=== PATIENT | female | born 1960 | race Caucasian/White ===

== ENCOUNTER 2018-11-22 19:55 | Observation (INO) | payer MEDICARE, OTHER ==
[2018-11-22] MEDS ORDERED: Aspirin 81 MG Tab.Chew PO ONE (20:10)
[2018-11-22] MEDS ORDERED: Nitroglycerin 2% Oint 1 GM UD Packet TOP ONE (20:10)
--- NOTE | 2018-11-22 20:16 | EDM.PDOC ---
ED HPI GENERAL MEDICAL PROBLEM - General Chief Complaint: Chest Pain Stated Complaint: CHEST PAIN AND DIZZINESS Time Seen by Provider: 11/22/18 19:55 Source of Information: Reports: Patient, Family History Limitations: Reports: No Limitations - History of Present Illness INITIAL COMMENTS - FREE TEXT/NARRATIVE: in with c/o MS cp (pressure) to left arm, some sob and dizziness, with nausea, no vomiting, no unusual neck/back pain or stiffness, no fever or chills, sx started 2 hours prior to arrival Onset: Today, Sudden Duration: Hour(s): (2 hours) Location: Reports: Other (mid chest) Quality: Reports: Pressure Severity: Moderate Improves with: Reports: None Worsens with: Reports: Other (activity) Associated Symptoms: Reports: Chest Pain, Shortness of Breath. Denies: Cough, Fever/Chills, Headaches, Nausea/Vomiting, Weakness Treatments [employer]: Reports: Other (see below) (none) Upper Chest Pain Score (Numeric/FACES): 4 - Related Data Allergies Allergy/AdvReac Type Severity Reaction Status Date / Time erythromycin base Allergy Hives Verified 11/22/18 20:06 Penicillins Allergy Anaphylactic Verified 11/22/18 20:06 Shock Home Meds: Home Meds Albuterol [Ventolin HFA] 1 puff INH DAILY PRN 11/22/18 [History] Aspirin 325 mg PO BEDTIME 11/22/18 [History] Cetirizine [ZyrTEC] 10 mg PO DAILY 11/22/18 [History] Insulin Glarg,Human.Rec.Analog [Lantus] 54 units SQ DAILY 11/22/18 [History] Liraglutide [Victoza] 1.8 mg SQ DAILY 11/22/18 [History] Losartan [Cozaar] 50 mg PO DAILY 11/22/18 [History] Meloxicam 15 mg PO DAILY 11/22/18 [History] Omeprazole 40 mg PO BEDTIME 11/22/18 [History] Pioglitazone [Actos] 30 mg PO DAILY 11/22/18 [History] Pregabalin [Lyrica] 100 mg PO BID 11/22/18 [History] Simvastatin [Zocor] 40 mg PO DAILY 11/22/18 [History] metFORMIN HCl [Metformin HCl] 1,000 mg PO DAILY 11/22/18 [History] traMADol [Ultram] 50 mg PO BEDTIME 11/22/18 [History] Past Medical History Cardiovascular History: Reports: Hypertension, Other (See Below) (high cholesterol) Endocrine/Metabolic History: Reports: Diabetes, Type II Social & Family History - Family History Cardiac: Reports: CAD, Hypertension - Tobacco Use Smoking Status *Q: Current Every Day Smoker - Alcohol Use Alcohol Use History: No - Living Situation & Occupation Living situation: Reports: with Family ED ROS GENERAL - Review of Systems Review Of Systems: See Below Constitutional: Denies: Fever, Chills, Weakness HEENT: Reports: No Symptoms Respiratory: Reports: Shortness of Breath Cardiovascular: Reports: Chest Pain Endocrine: Reports: No Symptoms GI/Abdominal: Reports: Nausea. Denies: Abdominal Pain, Melena, Vomiting : Reports: No Symptoms Musculoskeletal: Reports: No Symptoms. Denies: Neck Pain, Back Pain Skin: Reports: No Symptoms Neurological: Reports: Dizziness. Denies: Headache Psychiatric: Reports: No Symptoms Hematologic/Lymphatic: Reports: No Symptoms Immunologic: Reports: No Symptoms ED EXAM, GENERAL - Physical Exam Exam: See Below Exam Limited By: No Limitations General Appearance: Alert, WD/WN, No Apparent Distress, Other (morbid obesity) Ears: Normal External Exam, Hearing Grossly Normal Nose: Normal Inspection Throat/Mouth: Normal Inspection, Normal Lips Head: Atraumatic, Normocephalic Neck: Normal Inspection, Supple, Non-Tender, Full Range of Motion Respiratory/Chest: No Respiratory Distress, Lungs Clear, Normal Breath Sounds Cardiovascular: Normal Peripheral Pulses, Regular Rate, Rhythm, No Edema, No Murmur Peripheral Pulses: 2+: Radial (L), Radial (R), Dorsalis Pedis (L), Dorsalis Pedis (R) GI/Abdominal: Soft, Non-Tender Back Exam: Normal Inspection, Full Range of Motion Extremities: Normal Inspection, Normal Range of Motion, Non-Tender, No Pedal Edema, Normal Capillary Refill, Other (no calf pain). No: Redness Neurological: Alert, Oriented, Normal Cognition, Normal Gait Psychiatric: Normal Affect, Normal Mood Skin Exam: Warm, Dry, Intact, Normal Color EKG INTERPRETATION EKG Date: 11/22/18 Time: 19:56 Rhythm: NSR [place]: Other (boarderline left axis) P-Wave: Present QRS: Normal ST-T: Normal EKG Interpretation Comments: SR without injury or ischemia Course - Vital Signs Text/Narrative:: the pt was evaluated in the ED, CBC and general chemistries along with Trop are essi neg, cxr neg, 12 Lead EKG does not show injury or ischemia, the pt does have type II DM, HTN and high cholesterol, concerning CP with SOB, and a family hx of CAD. HEART score of 5, the pt was given ASA and NTG paste in the ED with some relief of sx, will admit to observation to r/o DC. Last Recorded V/S: Last Vital Signs Temp 36.4 C 11/22/18 20:20 Pulse 76 11/22/18 20:38 Resp 17 11/22/18 20:38 BP 155/79 H 11/22/18 20:38 Pulse Ox 96 11/22/18 20:38 - Orders/Labs/Meds Orders: Active Orders 24 hr Category Date Time Status Chest 2V [CR] Stat Exams 11/22/18 20:09 Taken EKG 12 Lead [EK] Routine Ther 11/22/18 20:09 Ordered Labs: Laboratory Tests 11/22/18 11/22/18 Range/Units 20:08 20:08 WBC 8.5 (5.0-10.0) 10^3/uL RBC 5.73 H (4.00-5.50) 10^6/uL Hgb 14.9 (12.0-16.0) g/dL Hct 45.2 (37.0-47.0) % MCV 78.9 L (82.0-94.0) fL MCH 26.0 L (27.0-32.0) pg MCHC 33.0 (33.0-38.0) g/dL RDW Coeff of Yoshi 15.3 H (11.0-15.0) % Plt Count 279 (150-400) 10^3/uL Neut % (Auto) 64.3 (35-85) % Lymph % (Auto) 28.6 (10-55) % [place] % (Auto) 4.4 (0-16) % Eos % (Auto) 2.5 (0-5) % Baso % (Auto) 0.2 (0-3) % Neut # (Auto) 5.45 (1.80-7.00) 10^3/uL Lymph # (Auto) 2.42 (1.00-4.80) 10^3/uL [place] # (Auto) 0.37 (0.00-0.80) 10^3/uL Eos # (Auto) 0.21 (0.00-0.45) 10^3/uL Baso # (Auto) 0.02 10^3/uL Sodium 143 (136-145) mEq/L Potassium 3.9 (3.5-5.0) mEq/L Chloride 106 (98-106) mEq/L Carbon Dioxide 27 (21-32) mmol/L BUN 15 (7-18) mg/dL Creatinine 0.8 (0.6-1.0) mg/dL Est Cr Clr Drug Dosing TNP Estimated GFR (MDRD) > 60 (>=60) mL/min Glucose 133 H (75-99) mg/dL Calcium 9.3 (8.4-10.1) mg/dL Total Bilirubin 0.6 (0.0-1.0) mg/dL AST 14 L (15-37) U/L ALT 19 (12-78) U/L Alkaline Phosphatase 74 (46-116) U/L Troponin I < 0.017 (0.00-0.06) ng/mL Total Protein 7.2 (6.4-8.2) g/dL Albumin 3.3 L (3.4-5.0) g/dL Meds: Medications Discontinued Medications Generic Name Dose Route Start Last Admin Trade Name Freq PRN Reason Stop Dose Admin Aspirin 324 mg 11/22/18 20:10 11/22/18 20:27 Aspirin PO 11/22/18 20:11 324 mg ONETIME ONE Administration Nitroglycerin 1 gm 11/22/18 20:10 11/22/18 20:28 Nitro-Bid 2% TOP 11/22/18 20:11 1 gm ONETIME ONE Administration - Radiology Interpretation Free Text/Narrative:: cxr neg, pending radiology reading Departure - Departure Time of Disposition: 20:36 Disposition: Admitted As Inpatient 66 Condition: Good Clinical Impression: Shortness of breath Chest pain Qualifiers: Chest pain type: unspecified Qualified Code(s): R07.9 - Chest pain, unspecified - Problem List & Annotations (1) Chest pain SNOMED Code(s): 55919603 Code(s): R07.9 - CHEST PAIN, UNSPECIFIED Status: Acute Priority: High Qualifiers: Chest pain type: unspecified Qualified Code(s): R07.9 - Chest pain, unspecified (2) Shortness of breath SNOMED Code(s): 858461059 Code(s): R06.02 - SHORTNESS OF BREATH Status: Acute Priority: High - Problem List Review Problem List Initiated/Reviewed/Updated: Yes - My Orders Last 24 Hours: My Active Orders 11/22/18 20:09 Chest 2V [CR] Stat EKG 12 Lead [EK] Routine - Assessment/Plan Admission H&P: Please use this note as an admission H&P Last 24 Hours: My Active Orders 11/22/18 20:09 Chest 2V [CR] Stat EKG 12 Lead [EK] Routine Plan: will admit to observation and repeat CE every 8 hours x 2; along with EKG, CBC, BMP in am and addition orders will be based on those findings.
[2018-11-22 20:31] LABS: CHLORIDE,CL 106 mEq/L (98-106); SODIUM,NA 143 mEq/L (136-145)
[2018-11-22] MEDS ORDERED: Sodium Chloride 0.9% 10 ML Syringe FLUSH PRN (20:39)
[2018-11-22] MEDS ORDERED: Enoxaparin 40 MG/0.4 ML Syringe SUBCUT SCH (20:45)
[2018-11-22] MEDS ORDERED: Albuterol 8 GM Inhaler INH PRN (20:46)
[2018-11-22] MEDS ORDERED: Nitroglycerin 2% Oint 1 GM UD Packet TOP PRN (21:38)
[2018-11-22] MEDS ORDERED: Pregabalin 100 MG Cap PO ONE (22:45)
[2018-11-22] MEDS ORDERED: traMADol 50 MG Tab PO ONE (23:00)
[2018-11-23] MEDS ORDERED: Nitroglycerin 2% Oint 1 GM UD Packet TOP SCH ×3 (00:30→08:00)
[2018-11-23 04:37] LABS: CHLORIDE,CL 108 mEq/L (98-106); SODIUM,NA 143 mEq/L (136-145)
[2018-11-23] MEDS ORDERED: Simvastatin 40 MG Tab PO SCH (08:00)
[2018-11-23] MEDS ORDERED: Loratadine 10 MG Tab PO SCH (08:00)
[2018-11-23] MEDS ORDERED: Losartan 25 MG Tab PO SCH (08:00)
[2018-11-23] MEDS ORDERED: Pregabalin 100 MG Cap PO SCH (08:00)
[2018-11-23] MEDS ORDERED: Meloxicam 7.5 MG Tab PO SCH (08:00)
[2018-11-23] MEDS ORDERED: Non-Formulary Medication 1 Each (Pioglitazone [Actos] 30 MG) PO SCH (08:00)
[2018-11-23] MEDS ORDERED: Non-Formulary Medication 1 Each (Liraglutide [Victoza] 1.8 MG) SQ SCH (08:00)
[2018-11-23] MEDS ORDERED: Insulin Glargine,Human Rec. Analog 100 Units/ML 3 ML Pen SUBCUT SCH (08:00)
[2018-11-23] MEDS ORDERED: metFORMIN 500 MG Tab PO SCH (08:00)
--- NOTE | 2018-11-23 12:15 | PCM.DCSUM1 ---
Discharge Summary - Hospital Course Free Text/Narrative:: pt presented yesterday with c/o cp and sob with some dizziness, was evaluated in the ED and admitted to the hospital observation unit for repeat CE and EKG, pt denies any CP or sob or dizziness now, had a good night last night, CE neg x 3 repeat EKG is unchanged Diagnosis: Stroke: No - Discharge Data Discharge Date: 11/23/18 Discharge Disposition: Home, Self-Care 01 Condition: Good - Discharge Diagnosis/Problem(s) (1) Chest pain SNOMED Code(s): 21470180 ICD Code: R07.9 - CHEST PAIN, UNSPECIFIED Status: Acute Priority: High Current Visit: No Qualifiers: Chest pain type: unspecified Qualified Code(s): R07.9 - Chest pain, unspecified (2) Shortness of breath SNOMED Code(s): 546982845 ICD Code: R06.02 - SHORTNESS OF BREATH Status: Acute Priority: High Current Visit: No - Patient Summary/Data Hospital Course: CE x 3 neg, CXR neg, EKG x 2 neg, will dc home and advised to f/u with pcp this week, is to call on sunday for f/u and schedule a stress test on outpt bases, advised to return to ER sooner if worse or problems - Patient Instructions Diet: Heart Healthy Diet Diet, Other: diabetic diet Activity: As Tolerated Driving: May Drive Today Showering/Bathing: May Shower Other/Special Instructions: rest. EC aspirin one x a day. nitroglycerine, placve one under your tounge every 5 minutes x 3 doses as needed for chest paijn. follow up with Gino Walters this week, call on sunday for an appointment time for further evaluation and possible stress test. return to the ED sooner if worse or problems - Discharge Plan *PRESCRIPTION DRUG MONITORING PROGRAM REVIEWED*: Not Applicable *COPY OF PRESCRIPTION DRUG MONITORING REPORT IN PATIENT RANDI: Not Applicable Home Medications: Home Meds Albuterol [Ventolin HFA] 1 puff INH DAILY PRN 11/22/18 [History] Aspirin 325 mg PO BEDTIME 11/22/18 [History] Cetirizine [ZyrTEC] 10 mg PO DAILY 11/22/18 [History] Insulin Glarg,Human.Rec.Analog [Lantus] 54 units SQ DAILY 11/22/18 [History] Liraglutide [Victoza] 1.8 mg SQ DAILY 11/22/18 [History] Losartan [Cozaar] 50 mg PO DAILY 11/22/18 [History] Meloxicam 15 mg PO DAILY 11/22/18 [History] Omeprazole 40 mg PO BEDTIME 11/22/18 [History] Pioglitazone [Actos] 30 mg PO DAILY 11/22/18 [History] Pregabalin [Lyrica] 100 mg PO BID 11/22/18 [History] Simvastatin [Zocor] 40 mg PO DAILY 11/22/18 [History] metFORMIN HCl [Metformin HCl] 1,000 mg PO DAILY 11/22/18 [History] traMADol [Ultram] 50 mg PO BEDTIME 11/22/18 [History] Aspirin 325 mg PO BEDTIME tablet 11/23/18 [Rx] Oxygen Therapy Mode: Room Air Referrals: Arun Walters PA-C [Primary Care Provider] - - Discharge Summary/Plan Comment DC Time >30 min.: No Discharge Summary/Plan Comment: will dc, f/u with pcp this week for out pt stress test - General Info Date of Service: 11/23/18 Functional Status: Reports: Pain Controlled - Review of Systems General: Reports: No Symptoms. Denies: Fever, Weakness HEENT: Reports: No Symptoms Pulmonary: Reports: No Symptoms. Denies: Shortness of Breath Cardiovascular: Reports: No Symptoms. Denies: Chest Pain, Palpitations, Dyspnea on Exertion Gastrointestinal: Reports: No Symptoms. Denies: Abdominal Pain, Nausea, Vomiting Genitourinary: Reports: No Symptoms Musculoskeletal: Reports: No Symptoms Skin: Reports: No Symptoms Neurological: Reports: No Symptoms Psychiatric: Reports: No Symptoms - Patient Data Vitals - Most Recent: Last Vital Signs Temp 36.1 C 11/23/18 08:00 Pulse 69 11/23/18 08:00 Resp 18 11/23/18 08:00 BP 129/54 L 11/23/18 08:00 Pulse Ox 97 11/23/18 08:00 Weight - Most Recent: 107.547 kg Lab Results - Last 24 hrs: Laboratory Results - last 24 hr 11/22/18 11/22/18 11/23/18 Range/Units 20:08 20:08 04:15 WBC 8.5 7.0 (5.0-10.0) 10^3/uL RBC 5.73 H 5.22 (4.00-5.50) 10^6/uL Hgb 14.9 13.7 (12.0-16.0) g/dL Hct 45.2 41.5 (37.0-47.0) % MCV 78.9 L 79.5 L (82.0-94.0) fL MCH 26.0 L 26.2 L (27.0-32.0) pg MCHC 33.0 33.0 (33.0-38.0) g/dL RDW Coeff of Yoshi 15.3 H 15.1 H (11.0-15.0) % Plt Count 279 253 (150-400) 10^3/uL Neut % (Auto) 64.3 45.0 (35-85) % Lymph % (Auto) 28.6 44.1 (10-55) % [place] % (Auto) 4.4 6.0 (0-16) % Eos % (Auto) 2.5 4.6 (0-5) % Baso % (Auto) 0.2 0.3 (0-3) % Neut # (Auto) 5.45 3.13 (1.80-7.00) 10^3/uL Lymph # (Auto) 2.42 3.07 (1.00-4.80) 10^3/uL [place] # (Auto) 0.37 0.42 (0.00-0.80) 10^3/uL Eos # (Auto) 0.21 0.32 (0.00-0.45) 10^3/uL Baso # (Auto) 0.02 0.02 10^3/uL Sodium 143 (136-145) mEq/L Potassium 3.9 (3.5-5.0) mEq/L Chloride 106 (98-106) mEq/L Carbon Dioxide 27 (21-32) mmol/L BUN 15 (7-18) mg/dL Creatinine 0.8 (0.6-1.0) mg/dL Est Cr Clr Drug Dosing TNP Estimated GFR (MDRD) > 60 (>=60) mL/min Glucose 133 H (75-99) mg/dL Calcium 9.3 (8.4-10.1) mg/dL Total Bilirubin 0.6 (0.0-1.0) mg/dL AST 14 L (15-37) U/L ALT 19 (12-78) U/L Alkaline Phosphatase 74 (46-116) U/L Troponin I < 0.017 (0.00-0.06) ng/mL Total Protein 7.2 (6.4-8.2) g/dL Albumin 3.3 L (3.4-5.0) g/dL 11/23/18 Range/Units 04:15 WBC (5.0-10.0) 10^3/uL RBC (4.00-5.50) 10^6/uL Hgb (12.0-16.0) g/dL Hct (37.0-47.0) % MCV (82.0-94.0) fL MCH (27.0-32.0) pg MCHC (33.0-38.0) g/dL RDW Coeff of Yoshi (11.0-15.0) % Plt Count (150-400) 10^3/uL Neut % (Auto) (35-85) % Lymph % (Auto) (10-55) % [place] % (Auto) (0-16) % Eos % (Auto) (0-5) % Baso % (Auto) (0-3) % Neut # (Auto) (1.80-7.00) 10^3/uL Lymph # (Auto) (1.00-4.80) 10^3/uL [place] # (Auto) (0.00-0.80) 10^3/uL Eos # (Auto) (0.00-0.45) 10^3/uL Baso # (Auto) 10^3/uL Sodium 143 (136-145) mEq/L Potassium 3.8 (3.5-5.0) mEq/L Chloride 108 H (98-106) mEq/L Carbon Dioxide 26 (21-32) mmol/L BUN 17 (7-18) mg/dL Creatinine 0.8 (0.6-1.0) mg/dL Est Cr Clr Drug Dosing 60.62 Estimated GFR (MDRD) > 60 (>=60) mL/min Glucose 135 H (75-99) mg/dL Calcium 9.1 (8.4-10.1) mg/dL Total Bilirubin (0.0-1.0) mg/dL AST (15-37) U/L ALT (12-78) U/L Alkaline Phosphatase (46-116) U/L Troponin I < 0.017 (0.00-0.06) ng/mL Total Protein (6.4-8.2) g/dL Albumin (3.4-5.0) g/dL Med Orders - Current: Current Medications Albuterol (Ventolin Hfa) 0 gm INH DAILY PRN PRN Reason: Shortness of Breath Aspirin (Aspirin) 325 mg PO BEDTIME [facility] Enoxaparin Sodium (Lovenox) 40 mg SUBCUT Q24H [facility] Last Admin: 11/22/18 22:43 Dose: 40 mg Insulin Glargine (Lantus Solostar) 54 units SUBCUT DAILY [facility] Last Admin: 11/23/18 10:48 Dose: Not Given Loratadine (Claritin) 10 mg PO DAILY [facility] Last Admin: 11/23/18 10:48 Dose: Not Given Losartan Potassium (Cozaar) 50 mg PO DAILY [facility] Last Admin: 11/23/18 10:48 Dose: Not Given Meloxicam (Mobic) 15 mg PO DAILY [facility] Last Admin: 11/23/18 10:48 Dose: Not Given Metformin HCl (Glucophage) 1,000 mg PO DAILY [facility] Last Admin: 11/23/18 10:48 Dose: Not Given Nitroglycerin (Nitro-Bid 2%) 1 gm TOP Q6H PRN PRN Reason: Chest Pain Nitroglycerin (Nitro-Bid 2%) 1 gm TOP BID [facility] Last Admin: 11/23/18 10:48 Dose: Not Given Non-Formulary Medication (Liraglutide [Victoza]) 1.8 mg SQ DAILY [facility] Last Admin: 11/23/18 10:48 Dose: Not Given Non-Formulary Medication (Pioglitazone [Actos]) 30 mg PO DAILY [facility] Last Admin: 11/23/18 10:48 Dose: Not Given Pantoprazole Sodium (Protonix) 40 mg PO BEDTIME [facility] Pregabalin (Lyrica) 100 mg PO BID [facility] Last Admin: 11/23/18 10:48 Dose: Not Given Simvastatin (Zocor) 40 mg PO DAILY [facility] Last Admin: 11/23/18 10:48 Dose: Not Given Sodium Chloride (Saline Flush) 10 ml FLUSH ASDIRECTED PRN PRN Reason: Keep Vein Open Tramadol HCl (Ultram) 50 mg PO BEDTIME [facility] Discontinued Medications Aspirin (Aspirin) 324 mg PO ONETIME ONE Stop: 11/22/18 20:11 Last Admin: 11/22/18 20:27 Dose: 324 mg Nitroglycerin (Nitro-Bid 2%) 1 gm TOP ONETIME ONE Stop: 11/22/18 20:11 Last Admin: 11/22/18 20:28 Dose: 1 gm Nitroglycerin (Nitro-Bid 2%) 1 gm TOP Q6H [facility] Last Admin: 11/23/18 02:33 Dose: Not Given Nitroglycerin (Nitro-Bid 2%) 1 gm TOP Q6H [facility] Last Admin: 11/23/18 02:33 Dose: Not Given Pregabalin (Lyrica) 100 mg PO ONETIME ONE Stop: 11/22/18 22:46 Last Admin: 11/22/18 22:48 Dose: 100 mg Tramadol HCl (Ultram) 50 mg PO ONETIME ONE Stop: 11/22/18 23:01 Last Admin: 11/22/18 22:49 Dose: 50 mg - Exam General: Reports: Alert, Oriented Neck: Reports: Supple Lungs: Reports: Clear to Auscultation, Normal Respiratory Effort Cardiovascular: Reports: Regular Rate, Regular Rhythm. Denies: Murmurs GI/Abdominal Exam: Soft, Non-Tender Back Exam: Reports: Normal Inspection, Full Range of Motion Extremities: Normal Inspection, Normal Range of Motion, Non-Tender, No Pedal Edema, Normal Capillary Refill. No: Leg Pain Skin: Reports: Warm, Dry, Intact Neurological: Reports: No New Focal Deficit, Normal Gait, Normal Speech Psy/Mental Status: Reports: Alert, Normal Affect, Normal Mood
[2018-11-23] MEDS ORDERED: traMADol 50 MG Tab PO SCH (20:00)
[2018-11-23] MEDS ORDERED: Aspirin 325 MG Tab PO SCH (20:00)
[2018-11-23] MEDS ORDERED: Pantoprazole 40 MG Tab.CR PO SCH (20:00)
== END 2018-11-23 13:13 | disposition home or self-care (01) ==
LOC: CC.ED 19:55 → CC.MS 20:39 → UNDOADMOB 21:04 → UNDODISOB 11-23 13:13
PROVIDERS: ADMIT Nurse Practitioner; ATTEND Family Medicine
DX: R07.9 Chest pain, unspecified (principal); R06.02 Shortness of breath; R42 Dizziness and giddiness; I10 Essential (primary) hypertension; E11.9 Type 2 diabetes mellitus without complications; F17.210 Nicotine dependence, cigarettes, uncomplicated; Z79.899 Other long term (current) drug therapy; Z79.82 Long term (current) use of aspirin; Z79.4 Long term (current) use of insulin; Z79.891 Long term (current) use of opiate analgesic; Z88.1 Allergy status to other antibiotic agents; Z88.0 Allergy status to penicillin
CPT/HCPCS: 36415; 71046; 80048; 80053; 84484; 85025; 93005; 99285; A9270; J1650; 93010; 96372; 99217; 99220; G0378

== ENCOUNTER 2019-04-29 18:05 | Inpatient (IN) | payer MEDICARE, OTHER ==
[2019-04-29] MEDS ORDERED: Acetaminophen 500 MG Tab PO ONE (18:16)
[2019-04-29] MEDS: Sodium Chloride 0.9% 1,000 ML IV SCH ×2 (18:27→23:00)
[2019-04-29] MEDS: Ondansetron 4 MG/2 ML SDV IVPUSH PRN (18:39)
[2019-04-29] MEDS ORDERED: cefTRIAXone 1 GM Vial IVPUSH ONE (19:13)
--- NOTE | 2019-04-29 19:25 | EDM.PDOC ---
ED HPI GENERAL MEDICAL PROBLEM - General Chief Complaint: General Stated Complaint: fever Time Seen by Provider: 04/29/19 18:30 Source of Information: Reports: Patient History Limitations: Reports: No Limitations - History of Present Illness INITIAL COMMENTS - FREE TEXT/NARRATIVE: Lisa is a 58 yo female who presents to the ED, accompanied by her son, with concerns of not feeling well. States she started getting sick Sunday in the middle of the night. Admits to running a fever and did take Tylenol today around 1:00pm. She states she has a sore throat, headache, body aches as well. Admits to sinus and chest congestion. States when she coughs she gets a sharp pain in her chest as well. Started having nausea and has been vomiting and dry heaving today. She admits she hasn't been taking her medications from home as she hasn't been feeling well. states this afternoon it has really gotten worse. Has been using her home inhaler with minimal relief. Chest Pain Score (Numeric/FACES): 7 - Related Data Allergies Allergy/AdvReac Type Severity Reaction Status Date / Time erythromycin base Allergy Hives Verified 04/29/19 18:30 Penicillins Allergy Anaphylactic Verified 04/29/19 18:30 Shock Home Meds: Home Meds Albuterol [Ventolin HFA] 1 puff INH DAILY PRN 11/22/18 [History] Cetirizine [ZyrTEC] 10 mg PO DAILY 11/22/18 [History] Insulin Glarg,Human.Rec.Analog [Lantus] 52 units SQ QAM 11/22/18 [History] Liraglutide [Victoza] 1.8 mg SQ DAILY 11/22/18 [History] Losartan [Cozaar] 50 mg PO DAILY 11/22/18 [History] Meloxicam 15 mg PO DAILY 11/22/18 [History] Omeprazole 40 mg PO BEDTIME 11/22/18 [History] Pioglitazone [Actos] 30 mg PO DAILY 11/22/18 [History] Pregabalin [Lyrica] 100 mg PO BID 11/22/18 [History] Simvastatin [Zocor] 40 mg PO DAILY 11/22/18 [History] metFORMIN HCl [Metformin HCl] 1,000 mg PO DAILY 11/22/18 [History] traMADol [Ultram] 50 mg PO BID PRN 11/22/18 [History] Pyridostigmine [Mestinon] 60 mg PO DAILY 04/29/19 [History] Past Medical History Cardiovascular History: Reports: High Cholesterol, Hypertension, Other (See Below). Denies: Stents Respiratory History: Reports: COPD Musculoskeletal History: Reports: Other (See Below) Other Musculoskeletal History: myasthenia gravis Neurological History: Reports: Other (See Below) (Mythenia Gravis) Endocrine/Metabolic History: Reports: Diabetes, Type II - Past Surgical History GI Surgical History: Reports: Appendectomy, Cholecystectomy Female Surgical History: Reports: Section Other Musculoskeletal Surgeries/Procedures:: BACK SURGERY Social & Family History - Family History Cardiac: Reports: CAD, Hypertension - Tobacco Use Smoking Status *Q: Current Every Day Smoker Years of Tobacco use: 50 Packs/Tins Daily: 1 - Caffeine Use Caffeine Use: Reports: Coffee, Soda - Recreational Drug Use Recreational Drug Use: No - Living Situation & Occupation Living situation: Reports: with Family ED ROS GENERAL - Review of Systems Review Of Systems: See Below Constitutional: Reports: Fever, Chills, Fatigue, Decreased Appetite HEENT: Reports: Rhinitis, Sinus Problem, Throat Pain Respiratory: Reports: Shortness of Breath, Wheezing, Pleuritic Chest Pain, Cough , Sputum Cardiovascular: Reports: Dyspnea on Exertion. Denies: Chest Pain, Edema, Palpitations GI/Abdominal: Reports: Nausea, Vomiting. Denies: Abdominal Pain, Constipation, Diarrhea : Reports: No Symptoms Musculoskeletal: Reports: No Symptoms Skin: Reports: No Symptoms Neurological: Reports: No Symptoms ED EXAM, GENERAL - Physical Exam Exam: See Below Exam Limited By: No Limitations General Appearance: Alert, Mild Distress Eye Exam: Bilateral Eye: Normal Inspection Ears: Normal External Exam, Normal Canal, Hearing Grossly Normal, Normal TMs Nose: Nasal Drainage Throat/Mouth: Normal Inspection Head: Atraumatic, Normocephalic Neck: Normal Inspection, Supple Respiratory/Chest: Decreased Breath Sounds, Rhonchi, Wheezing, Prolonged Expiration. No: Accessory Muscle Use Cardiovascular: No Murmur, Tachycardia GI/Abdominal: Normal Bowel Sounds, Soft, Non-Tender. No: Distended, Rebound, Tender Extremities: Normal Inspection, No Pedal Edema Neurological: Alert, Oriented, Normal Cognition Psychiatric: Normal Affect, Normal Mood Skin Exam: Dry, Increased Warmth Course - Vital Signs Last Recorded V/S: Last Vital Signs Temp 103.5 F H 04/29/19 19:00 Pulse 126 H 04/29/19 18:22 Resp 22 H 04/29/19 18:22 BP 148/66 H 04/29/19 18:22 Pulse Ox 95 04/29/19 18:22 - Orders/Labs/Meds Orders: Active Orders 24 hr Category Date Time Status Patient Status Manage Transfer [TRANSFER] Routine ADT 04/29/19 19:00 Active Cardiac Monitoring [RC] . DIRECTED Care 04/29/19 19:18 Active Chest 2V [CR] Stat Exams 04/29/19 18:16 Taken Nicotine [Habitrol] Med 04/30/19 08:00 Active 21 mg TRDERM DAILY Ondansetron [Zofran] Med 04/29/19 18:16 Active 4 mg IVPUSH Q6H PRN Oseltamivir [Tamiflu] Med 04/29/19 20:00 Active 75 mg PO BID Sodium Chloride 0.9% [Normal Saline] 1,000 ml Med 04/29/19 18:30 Active IV ASDIRECTED Resuscitation Status Routine Resus Stat 04/29/19 19:02 Ordered Medication Orders Sodium Chloride (Normal Saline) 1,000 mls @ 999 mls/hr IV ASDIRECTED [facility]IS Last Admin: 04/29/19 18:27 Dose: 999 mls/hr Nicotine (Habitrol) 21 mg TRDERM DAILY [facility] Ondansetron HCl (Zofran) 4 mg IVPUSH Q6H PRN PRN Reason: Nausea Last Admin: 04/29/19 18:39 Dose: 4 mg Oseltamivir Phosphate (Tamiflu) 75 mg PO BID [facility] Labs: Laboratory Tests 04/29/19 04/29/19 04/29/19 Range/Units 18:25 18:25 18:25 WBC 13.2 H (5.0-10.0) 10^3/uL RBC 5.46 (4.00-5.50) 10^6/uL Hgb 14.1 (12.0-16.0) g/dL Hct 42.1 (37.0-47.0) % MCV 77.1 L (82.0-94.0) fL MCH 25.8 L (27.0-32.0) pg MCHC 33.5 (33.0-38.0) g/dL RDW Coeff of Yoshi 14.8 (11.0-15.0) % Plt Count 191 (150-400) 10^3/uL Neut % (Auto) 87.1 H (35-85) % Lymph % (Auto) 7.0 L (10-55) % [place] % (Auto) 5.8 (0-16) % Eos % (Auto) 0 (0-5) % Baso % (Auto) 0.1 (0-3) % Neut # (Auto) 11.50 H (1.80-7.00) 10^3/uL Lymph # (Auto) 0.92 L (1.00-4.80) 10^3/uL [place] # (Auto) 0.77 (0.00-0.80) 10^3/uL Eos # (Auto) 0.00 (0.00-0.45) 10^3/uL Baso # (Auto) 0.01 10^3/uL Sodium 137 (136-145) mEq/L Potassium 4.1 (3.5-5.0) mEq/L Chloride 98 (98-106) mEq/L Carbon Dioxide 23 (21-32) mmol/L BUN 25 H (7-18) mg/dL Creatinine 1.1 H (0.6-1.0) mg/dL Est Cr Clr Drug Dosing 42.07 mL/min Estimated GFR (MDRD) 51 L (>=60) mL/min Glucose 308 H* D (75-99) mg/dL Lactic Acid 2.7 H (0.4-2.0) mmol/L Calcium 9.2 (8.4-10.1) mg/dL C-Reactive Protein 52.8 H (0.2-0.8) mg/dL Meds: Medications Generic Name Dose Route Start Last Admin Trade Name Freq PRN Reason Stop Dose Admin Sodium Chloride 1,000 mls @ 999 mls/hr 04/29/19 18:30 04/29/19 18:27 Normal Saline IV 999 mls/hr ASDIRECTED CHRIS Administration Nicotine 21 mg 04/30/19 08:00 Habitrol TRDERM DAILY CHRIS Ondansetron HCl 4 mg 04/29/19 18:16 04/29/19 18:39 Zofran IVPUSH 4 mg Q6H PRN Administration Nausea Oseltamivir Phosphate 75 mg 04/29/19 20:00 Tamiflu PO BID CHRIS Discontinued Medications Generic Name Dose Route Start Last Admin Trade Name Freq PRN Reason Stop Dose Admin Acetaminophen 1,000 mg 04/29/19 18:16 04/29/19 19:00 Tylenol Extra Strength PO 04/29/19 18:17 1,000 mg ONETIME ONE Administration Ceftriaxone Sodium 1 gm 04/29/19 19:13 Rocephin IVPUSH 04/29/19 19:14 ONETIME ONE Departure - Departure Time of Disposition: 19:14 Disposition: Refer to Observation Clinical Impression: Influenza and pneumonia - Discharge Information Forms: ED Department Discharge Sepsis Event Note - Evaluation Sepsis Screening Result: Possible Sepsis Risk - Focused Exam Vital Signs: Vital Signs Temp Temp Pulse Resp BP Pulse Ox 04/29/19 19:00 103.5 F H 04/29/19 18:22 103.5 F H 126 H 22 H 148/66 H 95 Date Exam was Performed: 04/29/19 Time Exam was Performed: 19:20 - Problem List & Annotations (1) Influenza and pneumonia Status: Acute - My Orders Last 24 Hours: My Active Orders 04/30/19 08:00 Nicotine [Habitrol] 21 mg TRDERM DAILY 04/29/19 18:16 Chest 2V [CR] Stat Ondansetron [Zofran] 4 mg IVPUSH Q6H PRN 04/29/19 18:30 Sodium Chloride 0.9% [Normal Saline] 1,000 ml IV ASDIRECTED 04/29/19 19:00 Patient Status Manage Transfer [TRANSFER] Routine 04/29/19 19:02 Resuscitation Status Routine 04/29/19 19:18 Cardiac Monitoring [RC] . DIRECTED 04/29/19 20:00 Oseltamivir [Tamiflu] 75 mg PO BID - Assessment/Plan Admission H&P: Please use this note as an admission H&P Last 24 Hours: My Active Orders 04/30/19 08:00 Nicotine [Habitrol] 21 mg TRDERM DAILY 04/29/19 18:16 Chest 2V [CR] Stat Ondansetron [Zofran] 4 mg IVPUSH Q6H PRN 04/29/19 18:30 Sodium Chloride 0.9% [Normal Saline] 1,000 ml IV ASDIRECTED 04/29/19 19:00 Patient Status Manage Transfer [TRANSFER] Routine 04/29/19 19:02 Resuscitation Status Routine 04/29/19 19:18 Cardiac Monitoring [RC] . DIRECTED 04/29/19 20:00 Oseltamivir [Tamiflu] 75 mg PO BID Plan: Chest x-ray is concerning for left sided pneumonia. Influenza B is positive. Patient is a chronic tobacco user. Labs did show leukocytosis with elevated Lactic Acid and CRP of 53. Patient to be admitted to Dr. Alvarenga's services under observation for IV fluids, Tamiflu, IV antibiotics, IV Zofran and nebs. Will closely monitor.
[2019-04-29] MEDS: Oseltamivir 75 MG Cap PO SCH (20:40)
[2019-04-29] MEDS ORDERED: traMADol 50 MG Tab PO PRN (21:17)
[2019-04-29] MEDS ORDERED: Ibuprofen 200 MG Tab PO PRN (21:17)
[2019-04-29] MEDS ORDERED: Albuterol 8 GM Inhaler INH PRN (21:17)
[2019-04-29] MEDS ORDERED: Acetaminophen 325 MG Tab PO PRN (21:17)
[2019-04-29] MEDS: Albuterol/Ipratropium 3.0-0.5 MG/3 ML Neb Soln NEB SCH (21:57)
[2019-04-29] MEDS: Pregabalin 100 MG Cap PO SCH (21:58)
[2019-04-29] MEDS: Insulin Lispro 100 Units/ML 3 ML Vial SUBCUT SCH (21:58)
[2019-04-29] MEDS: Enoxaparin 40 MG/0.4 ML Syringe SUBCUT SCH (21:58)
[2019-04-29] MEDS ORDERED: Pantoprazole 40 MG Tab.CR PO SCH (22:00)
[2019-04-30] MEDS ORDERED: Levofloxacin/Dextrose 5%-Water 750 MG in Premix Bag 1 BAG IV SCH (00:15)
[2019-04-30] MEDS: Levofloxacin/Dextrose 5%-Water 750 MG in Premix Bag 1 BAG IV SCH (00:43)
[2019-04-30] MEDS: Ondansetron 4 MG/2 ML SDV IVPUSH PRN (04:05)
[2019-04-30] MEDS ORDERED: Non-Formulary Medication 1 Each (Pyridostigmine 60 MG) PO SCH (08:00)
[2019-04-30] MEDS ORDERED: Simvastatin 40 MG Tab PO SCH (08:00)
[2019-04-30] MEDS ORDERED: Losartan 25 MG Tab PO SCH (08:00)
[2019-04-30] MEDS: Albuterol/Ipratropium 3.0-0.5 MG/3 ML Neb Soln NEB SCH ×4 (08:05→19:53)
[2019-04-30] MEDS: Insulin Lispro 100 Units/ML 3 ML Vial SUBCUT SCH ×4 (08:07→21:04)
[2019-04-30] MEDS: Oseltamivir 75 MG Cap PO SCH ×2 (08:10→19:53)
[2019-04-30] MEDS: Insulin Glargine,Human Rec. Analog 100 Units/ML 3 ML Pen SUBCUT SCH (08:11)
[2019-04-30] MEDS: Nicotine 21 MG/24 Hr Patch TRDERM SCH (08:19)
[2019-04-30] MEDS: Sodium Chloride 0.9% 1,000 ML IV SCH ×2 (08:56→16:33)
--- NOTE | 2019-04-30 09:21 | PCM.PN ---
- General Info Date of Service: 04/30/19 Admission Dx/Problem (Free Text): Influenza and left upper lobe pneumonia Subjective Update: Lisa is a 58 yo female who was admitted yesterday with influenza and left upper lobe pneumonia. Laboratory work did show leukocytosis with an elevated CRP and lactic acid. Blood cultures are pending. She has been on IV antibiotics , Tamiflu, nebs, etc... Today she states she is feeling a little better. she denies any new onset of symptoms. Continues to be nauseated but hasn't had any further episodes of emesis. Functional Status: Reports: Pain Controlled - Review of Systems General: Reports: Fatigue, Chills. Denies: Fever HEENT: Reports: No Symptoms Pulmonary: Reports: Shortness of Breath, Pleuritic Chest Pain (improving), Cough Cardiovascular: Denies: Chest Pain, Edema, Lightheadedness Gastrointestinal: Reports: Decreased Appetite, Diarrhea, Nausea. Denies: Abdominal Pain, Difficulty Swallowing, Hematochezia, Melena, Vomiting Genitourinary: Reports: No Symptoms - Patient Data Vitals - Most Recent: Last Vital Signs Temp 99 F 04/30/19 04:00 Pulse 126 H 04/29/19 18:22 Resp 18 04/30/19 04:00 BP 113/46 L 04/30/19 04:00 Pulse Ox 95 04/30/19 04:00 Weight - Most Recent: 214 lb 12.8 oz I&O - Last 24 Hours: Intake & Output 04/29/19 04/30/19 04/30/19 22:59 06:59 14:59 Intake Total 1000 Balance 1000 Lab Results Last 24 Hours: Laboratory Results - last 24 hr 04/29/19 04/29/19 04/29/19 Range/Units 18:25 18:25 18:25 WBC 13.2 H (5.0-10.0) 10^3/uL RBC 5.46 (4.00-5.50) 10^6/uL Hgb 14.1 (12.0-16.0) g/dL Hct 42.1 (37.0-47.0) % MCV 77.1 L (82.0-94.0) fL MCH 25.8 L (27.0-32.0) pg MCHC 33.5 (33.0-38.0) g/dL RDW Coeff of Yoshi 14.8 (11.0-15.0) % Plt Count 191 (150-400) 10^3/uL Neut % (Auto) 87.1 H (35-85) % Lymph % (Auto) 7.0 L (10-55) % [place] % (Auto) 5.8 (0-16) % Eos % (Auto) 0 (0-5) % Baso % (Auto) 0.1 (0-3) % Neut # (Auto) 11.50 H (1.80-7.00) 10^3/uL Lymph # (Auto) 0.92 L (1.00-4.80) 10^3/uL [place] # (Auto) 0.77 (0.00-0.80) 10^3/uL Eos # (Auto) 0.00 (0.00-0.45) 10^3/uL Baso # (Auto) 0.01 10^3/uL Sodium 137 (136-145) mEq/L Potassium 4.1 (3.5-5.0) mEq/L Chloride 98 (98-106) mEq/L Carbon Dioxide 23 (21-32) mmol/L BUN 25 H (7-18) mg/dL Creatinine 1.1 H (0.6-1.0) mg/dL Est Cr Clr Drug Dosing 42.07 mL/min Estimated GFR (MDRD) 51 L (>=60) mL/min Glucose 308 H* D (75-99) mg/dL POC Glucose (75-105) mg/dl Lactic Acid 2.7 H (0.4-2.0) mmol/L Calcium 9.2 (8.4-10.1) mg/dL C-Reactive Protein 52.8 H (0.2-0.8) mg/dL 04/29/19 04/30/19 04/30/19 Range/Units 21:53 07:01 07:10 WBC 11.8 H (5.0-10.0) 10^3/uL RBC 4.90 (4.00-5.50) 10^6/uL Hgb 12.6 (12.0-16.0) g/dL Hct 38.3 (37.0-47.0) % MCV 78.2 L (82.0-94.0) fL MCH 25.7 L (27.0-32.0) pg MCHC 32.9 L (33.0-38.0) g/dL RDW Coeff of Yoshi 14.8 (11.0-15.0) % Plt Count 172 (150-400) 10^3/uL Neut % (Auto) 84.0 (35-85) % Lymph % (Auto) 8.2 L (10-55) % [place] % (Auto) 7.6 (0-16) % Eos % (Auto) 0 (0-5) % Baso % (Auto) 0.2 (0-3) % Neut # (Auto) 9.88 H (1.80-7.00) 10^3/uL Lymph # (Auto) 0.96 L (1.00-4.80) 10^3/uL [place] # (Auto) 0.89 H (0.00-0.80) 10^3/uL Eos # (Auto) 0.00 (0.00-0.45) 10^3/uL Baso # (Auto) 0.02 10^3/uL Sodium (136-145) mEq/L Potassium (3.5-5.0) mEq/L Chloride (98-106) mEq/L Carbon Dioxide (21-32) mmol/L BUN (7-18) mg/dL Creatinine (0.6-1.0) mg/dL Est Cr Clr Drug Dosing mL/min Estimated GFR (MDRD) (>=60) mL/min Glucose (75-99) mg/dL POC Glucose 300 H 260 H (75-105) mg/dl Lactic Acid (0.4-2.0) mmol/L Calcium (8.4-10.1) mg/dL C-Reactive Protein (0.2-0.8) mg/dL 04/30/19 04/30/19 Range/Units 07:10 07:10 WBC (5.0-10.0) 10^3/uL RBC (4.00-5.50) 10^6/uL Hgb (12.0-16.0) g/dL Hct (37.0-47.0) % MCV (82.0-94.0) fL MCH (27.0-32.0) pg MCHC (33.0-38.0) g/dL RDW Coeff of [place]oshi (11.0-15.0) % Plt Count (150-400) 10^3/uL Neut % (Auto) (35-85) % Lymph % (Auto) (10-55) % [place] % (Auto) (0-16) % Eos % (Auto) (0-5) % Baso % (Auto) (0-3) % Neut # (Auto) (1.80-7.00) 10^3/uL Lymph # (Auto) (1.00-4.80) 10^3/uL [place] # (Auto) (0.00-0.80) 10^3/uL Eos # (Auto) (0.00-0.45) 10^3/uL Baso # (Auto) 10^3/uL Sodium (136-145) mEq/L Potassium (3.5-5.0) mEq/L Chloride (98-106) mEq/L Carbon Dioxide (21-32) mmol/L BUN (7-18) mg/dL Creatinine (0.6-1.0) mg/dL Est Cr Clr Drug Dosing mL/min Estimated GFR (MDRD) (>=60) mL/min Glucose (75-99) mg/dL POC Glucose (75-105) mg/dl Lactic Acid 1.3 (0.4-2.0) mmol/L Calcium (8.4-10.1) mg/dL C-Reactive Protein 35.4 H (0.2-0.8) mg/dL [place]en Results Last 24 Hours: Microbiology 04/29/19 18:30 Influenza Type A Antigen Screen - Final Nasal Aspirate, Unspecified NEGATIVE INFLUENZA A VIRUS AG REFERENCE RANGE: NEGATIVE Influenza Type B Antigen Screen - Final Positive Influenza B Ag Med Orders - Current: Current Medications Acetaminophen (Tylenol) 650 mg PO Q4H PRN PRN Reason: Pain (Mild 1-3)/fever Albuterol (Ventolin Hfa) 0 gm INH DAILY PRN PRN Reason: Shortness of Breath Albuterol/Ipratropium (Duoneb 3.0-0.5 Mg/3 Ml) 3 ml NEB QID [facility] Last Admin: 04/30/19 08:05 Dose: 3 ml Enoxaparin Sodium (Lovenox) 40 mg SUBCUT Q24H [facility] Last Admin: 04/29/19 21:58 Dose: 40 mg Levofloxacin/Dextrose 750 mg/ (Premix) 150 mls @ 100 mls/hr IV Q48H [facility] Last Admin: 04/30/19 00:43 Dose: 100 mls/hr Sodium Chloride (Normal Saline) 1,000 mls @ 125 mls/hr IV ASDIRECTED [facility] Last Admin: 04/30/19 08:56 Dose: 125 mls/hr Ibuprofen (Motrin) 600 mg PO Q6H PRN PRN Reason: Pain (mild 1-3) Insulin Glargine (Lantus Solostar) 52 units SUBCUT DAILY [facility] Last Admin: 04/30/19 08:11 Dose: 52 units Insulin Human Lispro (Humalog) 0 unit SUBCUT WITHMEALSANDBED [facility]; Protocol Last Admin: 04/30/19 08:07 Dose: 6 units Loratadine (Claritin) 10 mg PO DAILY [facility] Losartan Potassium (Cozaar) 50 mg PO DAILY [facility] Metformin HCl (Glucophage) 1,000 mg PO BEDTIME [facility] Nicotine (Habitrol) 21 mg TRDERM DAILY [facility] Last Admin: 04/30/19 08:19 Dose: Not Given Non-Formulary Medication (Liraglutide [Victoza]) 1.8 mg SQ DAILY [facility] Non-Formulary Medication (Pioglitazone [Actos]) 30 mg PO DAILY [facility] Non-Formulary Medication (Pyridostigmine) 60 mg PO DAILY [facility] Ondansetron HCl (Zofran) 4 mg IVPUSH Q6H PRN PRN Reason: Nausea Last Admin: 04/30/19 04:05 Dose: 4 mg Oseltamivir Phosphate (Tamiflu) 75 mg PO BID [facility] Last Admin: 04/30/19 08:10 Dose: 75 mg Pantoprazole Sodium (Protonix) 40 mg PO BEDTIME [facility] Last Admin: 04/29/19 22:01 Dose: Not Given Pregabalin (Lyrica) 100 mg PO BID [facility] Last Admin: 04/29/19 21:58 Dose: Not Given Simvastatin (Zocor) 40 mg PO DAILY [facility] Tramadol HCl (Ultram) 50 mg PO BID PRN PRN Reason: Pain Discontinued Medications Acetaminophen (Tylenol Extra Strength) 1,000 mg PO ONETIME ONE Stop: 04/29/19 18:17 Last Admin: 04/29/19 19:00 Dose: 1,000 mg Ceftriaxone Sodium (Rocephin) 1 gm IVPUSH ONETIME ONE Stop: 04/29/19 19:14 Last Admin: 04/29/19 20:40 Dose: 1 gm Sodium Chloride (Normal Saline) 1,000 mls @ 999 mls/hr IV ASDIRECTED [facility] Last Admin: 04/29/19 23:00 Dose: 125 mls/hr - Exam General: Alert, Oriented HEENT: Pupils Equal, Pupils Reactive, EOMI Neck: Supple Lungs: Wheezing (improvement noted from yesterday) Cardiovascular: Regular Rate, Regular Rhythm GI/Abdominal Exam: Normal Bowel Sounds, Soft, Non-Tender, No Distention Extremities: Normal Inspection, No Pedal Edema Skin: Warm, Dry, Intact Neurological: No New Focal Deficit Psy/Mental Status: Alert, Normal Affect, Normal Mood Sepsis Event Note - Evaluation Sepsis Screening Result: Sepsis Risk - Focused Exam Vital Signs: Vital Signs Temp Resp BP Pulse Ox 04/30/19 04:00 99 F 18 113/46 L 95 04/30/19 00:00 100.4 F 18 117/78 95 04/29/19 21:17 101.1 F H 20 134/66 94 L Date Exam was Performed: 04/30/19 Time Exam was Performed: 09:16 - Problem List & Annotations (1) Influenza and pneumonia Status: Acute Current Visit: No - Problem List Review Problem List Initiated/Reviewed/Updated: Yes - My Orders Last 24 Hours: My Active Orders 04/30/19 01:00 Levofloxacin/Dextrose 5%-Water [Levaquin in D5W 750 MG/150 ML] 750 mg Premix Bag 1 bag IV Q48H 04/30/19 08:00 Insulin Glarg,Human.Rec.Analog [LantUS Solostar] 52 units SUBCUT DAILY Liraglutide [Victoza] 1.8 mg SQ DAILY Loratadine [Claritin] 10 mg PO DAILY Losartan [Cozaar] 50 mg PO DAILY Nicotine [Habitrol] 21 mg TRDERM DAILY Pioglitazone [Actos] 30 mg PO DAILY Pyridostigmine 60 mg PO DAILY Simvastatin [Zocor] 40 mg PO DAILY 04/30/19 20:00 metFORMIN [Glucophage] 1,000 mg PO BEDTIME 05/01/19 07:00 C-REACTIVE PROTEIN [CHEM] DAILY CBC WITH AUTO DIFF [HEME] DAILY LACTIC ACID [CHEM] DAILY 04/29/19 18:16 Chest 2V [CR] Stat Ondansetron [Zofran] 4 mg IVPUSH Q6H PRN 04/29/19 19:02 Resuscitation Status Routine 04/29/19 19:18 Cardiac Monitoring [RC] 0800,199904/29/19 19:55 CULTURE BLOOD [BC] Stat 04/29/19 19:58 CULTURE BLOOD [BC] Stat 04/29/19 20:00 Oseltamivir [Tamiflu] 75 mg PO BID 04/29/19 21:17 Patient Status [ADT] Routine Blood Glucose Check, Bedside [RC] 0730,1130,1700,2100 Oxygen Therapy [RC] .PRN Pulse Oximetry [RC] .PRN RT Aerosol Therapy [RC] 0800,1200,1600,2000 Up ad Wendi [RC] .PRN Vital Signs [RC] 0000,0400,0800,1200,1600,2000 CULTURE SPUTUM + SMEAR [RM] Stat Acetaminophen [Tylenol] 650 mg PO Q4H PRN Albuterol [Ventolin HFA] 0 gm INH DAILY PRN Albuterol/Ipratropium [DuoNeb 3.0-0.5 MG/3 ML] 3 ml NEB QID Ibuprofen [Motrin] 600 mg PO Q6H PRN Insulin Lispro [HumaLOG] See Protocol SUBCUT WITHMEALSANDBED Pregabalin [Lyrica] 100 mg PO BID traMADol [Ultram] 50 mg PO BID PRN Blood Culture x2 Reflex Set [OM.PC] Stat 04/29/19 22:00 Enoxaparin [Lovenox] 40 mg SUBCUT Q24H Pantoprazole [ProTONIX] 40 mg PO BEDTIME 04/29/19 23:00 Sodium Chloride 0.9% [Normal Saline] 1,000 ml IV ASDIRECTED - Plan Plan:: Lisa appears to be doing a lot better today than yesterday. Labs have significantly improved as well. We will continue with IV fluids today d/t nausea , IV antibiotics, Tamiflu, nebulizer treatments. We will repeat labs in the morning. Again, blood cultures are pending. Lisa verbalized understanding of treatment plan and is in agreement.
[2019-04-30] MEDS: Codeine/Promethazine 10-6.25 MG/5 ML Syrup 5 ML UD Cup PO PRN ×2 (10:09→23:47)
[2019-04-30] MEDS ORDERED: TRAMADOL 50 MG PO PRN (10:54)
[2019-04-30] MEDS: Loratadine 10 MG Tab PO SCH (11:44)
[2019-04-30] MEDS: Pregabalin 100 MG Cap PO SCH (11:46)
[2019-04-30] MEDS: PREGABALIN 100 MG PO SCH (19:53)
[2019-04-30] MEDS ORDERED: OMEPRAZOLE 40 MG PO SCH (20:00)
[2019-04-30] MEDS ORDERED: METFORMIN 1000 MG PO SCH (20:00)
[2019-04-30] MEDS: Enoxaparin 40 MG/0.4 ML Syringe SUBCUT SCH (23:49)
[2019-05-01] MEDS: Sodium Chloride 0.9% 1,000 ML IV SCH (00:54)
[2019-05-01] MEDS ORDERED: LOSARTAN 50 MG PO SCH (08:00)
[2019-05-01] MEDS ORDERED: SIMVASTATIN 40 MG PO SCH (08:00)
[2019-05-01] MEDS: Albuterol/Ipratropium 3.0-0.5 MG/3 ML Neb Soln NEB SCH ×4 (08:35→20:05)
[2019-05-01] MEDS: Oseltamivir 75 MG Cap PO SCH ×2 (08:35→20:05)
[2019-05-01] MEDS: PREGABALIN 100 MG PO SCH (08:37)
[2019-05-01] MEDS: PIOGLITAZONE 30 MG PO SCH (08:38)
[2019-05-01] MEDS: Insulin Glargine,Human Rec. Analog 100 Units/ML 3 ML Pen SUBCUT SCH (08:40)
[2019-05-01] MEDS: Nicotine 21 MG/24 Hr Patch TRDERM SCH (08:40)
[2019-05-01] MEDS: Insulin Lispro 100 Units/ML 3 ML Vial SUBCUT SCH ×4 (08:42→20:10)
[2019-05-01] MEDS: VICTOZA SUBCUT SCH (08:44)
[2019-05-01] MEDS: Loratadine 10 MG Tab PO SCH (08:55)
--- NOTE | 2019-05-01 11:30 | PCM.PN ---
- General Info Date of Service: 05/01/19 Admission Dx/Problem (Free Text): Influenza and left upper lobe pneumonia Functional Status: Reports: Pain Controlled, Tolerating Diet. Denies: Ambulating - Review of Systems General: Reports: Weakness, Fatigue, Malaise. Denies: Fever HEENT: Reports: Rhinitis Pulmonary: Reports: Shortness of Breath, Cough, Wheezing. Denies: Sputum Cardiovascular: Denies: Chest Pain, Edema, Lightheadedness Gastrointestinal: Denies: Abdominal Pain, Nausea, Vomiting Genitourinary: Reports: No Symptoms Musculoskeletal: Reports: No Symptoms Skin: Reports: No Symptoms Neurological: Reports: Weakness Psychiatric: Reports: No Symptoms - Patient Data Vitals - Most Recent: Last Vital Signs Temp 98.1 F 05/01/19 08:00 Pulse 83 05/01/19 08:00 Resp 20 05/01/19 08:00 BP 125/50 L 05/01/19 08:00 Pulse Ox 94 L 05/01/19 08:00 Weight - Most Recent: 214 lb 12.8 oz I&O - Last 24 Hours: Intake & Output 04/30/19 05/01/19 05/01/19 22:59 06:59 14:59 Intake Total 952 1000 Balance 952 1000 Lab Results Last 24 Hours: Laboratory Results - last 24 hr 04/30/19 04/30/19 04/30/19 Range/Units 12:18 15:43 19:43 WBC (5.0-10.0) 10^3/uL RBC (4.00-5.50) 10^6/uL Hgb (12.0-16.0) g/dL Hct (37.0-47.0) % MCV (82.0-94.0) fL MCH (27.0-32.0) pg MCHC (33.0-38.0) g/dL RDW Coeff of Yoshi (11.0-15.0) % Plt Count (150-400) 10^3/uL Neut % (Auto) (35-85) % Lymph % (Auto) (10-55) % Cassia % (Auto) (0-16) % Eos % (Auto) (0-5) % Baso % (Auto) (0-3) % Neut # (Auto) (1.80-7.00) 10^3/uL Lymph # (Auto) (1.00-4.80) 10^3/uL Cassia # (Auto) (0.00-0.80) 10^3/uL Eos # (Auto) (0.00-0.45) 10^3/uL Baso # (Auto) 10^3/uL POC Glucose 257 H 200 H 285 H (75-105) mg/dl Lactic Acid (0.4-2.0) mmol/L C-Reactive Protein (0.2-0.8) mg/dL 05/01/19 05/01/19 05/01/19 Range/Units 07:00 07:00 07:00 WBC 7.1 (5.0-10.0) 10^3/uL RBC 4.95 (4.00-5.50) 10^6/uL Hgb 12.8 (12.0-16.0) g/dL Hct 39.1 (37.0-47.0) % MCV 79.0 L (82.0-94.0) fL MCH 25.9 L (27.0-32.0) pg MCHC 32.7 L (33.0-38.0) g/dL RDW Coeff of Yoshi 15.1 H (11.0-15.0) % Plt Count 198 (150-400) 10^3/uL Neut % (Auto) 65.3 (35-85) % Lymph % (Auto) 24.5 (10-55) % Cassia % (Auto) 7.7 (0-16) % Eos % (Auto) 2.2 (0-5) % Baso % (Auto) 0.3 (0-3) % Neut # (Auto) 4.66 (1.80-7.00) 10^3/uL Lymph # (Auto) 1.75 (1.00-4.80) 10^3/uL Cassia # (Auto) 0.55 (0.00-0.80) 10^3/uL Eos # (Auto) 0.16 (0.00-0.45) 10^3/uL Baso # (Auto) 0.02 10^3/uL POC Glucose (75-105) mg/dl Lactic Acid 0.9 (0.4-2.0) mmol/L C-Reactive Protein 19.8 H (0.2-0.8) mg/dL 05/01/19 Range/Units 07:41 WBC (5.0-10.0) 10^3/uL RBC (4.00-5.50) 10^6/uL Hgb (12.0-16.0) g/dL Hct (37.0-47.0) % MCV (82.0-94.0) fL MCH (27.0-32.0) pg MCHC (33.0-38.0) g/dL RDW Coeff of Yoshi (11.0-15.0) % Plt Count (150-400) 10^3/uL Neut % (Auto) (35-85) % Lymph % (Auto) (10-55) % Cassia % (Auto) (0-16) % Eos % (Auto) (0-5) % Baso % (Auto) (0-3) % Neut # (Auto) (1.80-7.00) 10^3/uL Lymph # (Auto) (1.00-4.80) 10^3/uL Cassia # (Auto) (0.00-0.80) 10^3/uL Eos # (Auto) (0.00-0.45) 10^3/uL Baso # (Auto) 10^3/uL POC Glucose 181 H (75-105) mg/dl Lactic Acid (0.4-2.0) mmol/L C-Reactive Protein (0.2-0.8) mg/dL Deven Results Last 24 Hours: Microbiology 04/29/19 19:58 Aerobic Blood Culture - Preliminary Blood - Venous - Lab Draw NO GROWTH AFTER 1 DAY Anaerobic Blood Culture - Preliminary NO GROWTH AFTER 1 DAY 04/29/19 19:55 Aerobic Blood Culture - Preliminary Blood - Venous NO GROWTH AFTER 1 DAY Anaerobic Blood Culture - Preliminary NO GROWTH AFTER 1 DAY Med Orders - Current: Current Medications Acetaminophen (Tylenol) 650 mg PO Q4H PRN PRN Reason: Pain (Mild 1-3)/fever Albuterol (Ventolin Hfa) 0 gm INH DAILY PRN PRN Reason: Shortness of Breath Albuterol/Ipratropium (Duoneb 3.0-0.5 Mg/3 Ml) 3 ml NEB QID [facility] Last Admin: 05/01/19 08:35 Dose: 3 ml Enoxaparin Sodium (Lovenox) 40 mg SUBCUT Q24H [facility] Last Admin: 04/30/19 23:49 Dose: 40 mg Levofloxacin/Dextrose 750 mg/ (Premix) 150 mls @ 100 mls/hr IV Q48H [facility] Last Admin: 04/30/19 00:43 Dose: 100 mls/hr Ibuprofen (Motrin) 600 mg PO Q6H PRN PRN Reason: Pain (mild 1-3) Last Admin: 04/30/19 12:45 Dose: 600 mg Insulin Glargine (Lantus Solostar) 52 units SUBCUT DAILY [facility] Last Admin: 05/01/19 08:40 Dose: 52 units Insulin Human Lispro (Humalog) 0 unit SUBCUT WITHMEALSANDBED [facility]; Protocol Last Admin: 05/01/19 08:42 Dose: 2 units Loratadine (Claritin) 10 mg PO DAILY [facility] Last Admin: 05/01/19 08:55 Dose: 10 mg Nicotine (Habitrol) 21 mg TRDERM DAILY [facility] Last Admin: 05/01/19 08:40 Dose: Not Given Non-Formulary Medication (Pyridostigmine) 60 mg PO DAILY [facility] Ondansetron HCl (Zofran) 4 mg IVPUSH Q6H PRN PRN Reason: Nausea Last Admin: 04/30/19 04:05 Dose: 4 mg Oseltamivir Phosphate (Tamiflu) 75 mg PO BID [facility] Last Admin: 05/01/19 08:35 Dose: 75 mg Victoza *Pt Own Med* 0 each SUBCUT DAILY [facility] Last Admin: 05/01/19 08:44 Dose: 1 each Pioglitazone 30 Mg (Tab *Pt Own Med*) 0 each PO DAILY [facility] Last Admin: 05/01/19 08:38 Dose: 1 each Metformin 1000 Mg (Tab*Pt Own Med*) 0 each PO BEDTIME [facility] Last Admin: 04/30/19 19:53 Dose: 1 each Simvastatin 40 Mg (Tab*Pt Own Med.) 0 each PO DAILY [facility] Last Admin: 05/01/19 08:38 Dose: 1 each Losartant 50 Mg Tabs (*Pt Own Med*) 0 each PO DAILY [facility] Last Admin: 05/01/19 08:39 Dose: 1 each Omeprazole 40 Mg Cap (*Pt Own Med*) 0 each PO BEDTIME [facility] Last Admin: 04/30/19 19:53 Dose: 1 each Tramadol 50 Mg Tab* (Pt Own Med*) 0 each PO BID PRN PRN Reason: PAIN Last Admin: 04/30/19 19:53 Dose: 1 each Pregabalin 100 Mg (Cap*Pt Own Med*) 0 each PO BID [facility] Last Admin: 05/01/19 08:37 Dose: 1 each Promethazine HCl/Codeine (Phenergan With Codeine) 10 ml PO Q6H PRN PRN Reason: Cough Last Admin: 04/30/19 23:47 Dose: 10 ml Discontinued Medications Acetaminophen (Tylenol Extra Strength) 1,000 mg PO ONETIME ONE Stop: 04/29/19 18:17 Last Admin: 04/29/19 19:00 Dose: 1,000 mg Ceftriaxone Sodium (Rocephin) 1 gm IVPUSH ONETIME ONE Stop: 04/29/19 19:14 Last Admin: 04/29/19 20:40 Dose: 1 gm Sodium Chloride (Normal Saline) 1,000 mls @ 999 mls/hr IV ASDIRECTED [facility] Last Admin: 04/29/19 23:00 Dose: 125 mls/hr Sodium Chloride (Normal Saline) 1,000 mls @ 125 mls/hr IV ASDIRECTED [facility] Last Admin: 05/01/19 00:54 Dose: 125 mls/hr Losartan Potassium (Cozaar) 50 mg PO DAILY [facility] Last Admin: 04/30/19 11:46 Dose: Not Given Pantoprazole Sodium (Protonix) 40 mg PO BEDTIME [facility] Last Admin: 04/29/19 22:01 Dose: Not Given Pregabalin (Lyrica) 100 mg PO BID [facility] Last Admin: 04/30/19 11:46 Dose: Not Given Simvastatin (Zocor) 40 mg PO DAILY [facility] Last Admin: 04/30/19 11:46 Dose: Not Given Tramadol HCl (Ultram) 50 mg PO BID PRN PRN Reason: Pain - Exam General: Alert, Oriented HEENT: Mucous Membr. Moist/[place] Neck: Supple Lungs: Decreased Breath Sounds, Wheezing Cardiovascular: Regular Rate, Regular Rhythm GI/Abdominal Exam: Normal Bowel Sounds, Soft, Non-Tender Extremities: Normal Inspection, No Pedal Edema Skin: Warm, Dry Neurological: No New Focal Deficit Sepsis Event Note - Evaluation Sepsis Screening Result: No Definite Risk - Focused Exam Vital Signs: Vital Signs Temp Pulse Resp BP Pulse Ox 05/01/19 08:00 98.1 F 83 20 125/50 L 94 L 05/01/19 04:00 97.8 F 18 141/44 H 95 05/01/19 00:00 97.3 F 73 18 123/68 95 Date Exam was Performed: 05/01/19 Time Exam was Performed: 12:03 - Problem List & Annotations (1) Influenza and pneumonia Status: Acute Priority: High Current Visit: Yes - Problem List Review Problem List Initiated/Reviewed/Updated: Yes - My Orders Last 24 Hours: My Active Orders 05/01/19 08:32 Patient Status [ADT] Routine - Assessment Assessment:: Influenza B Pneumonia - Plan Plan:: Lisa appears to be doing a lot better today than yesterday. Labs have significantly improved as well. We will continue with IV fluids today d/t nausea , IV antibiotics, Tamiflu, nebulizer treatments. We will repeat labs in the morning. Again, blood cultures are pending. Lisa verbalized understanding of treatment plan and is in agreement. 05-01-2019 patient continues to feel short of breath, especially with activity. Continues to be wheezy. Admits to less body aches, appetite has returned. Oxygen sats this am 95% on room air. Afebrile now. WBC is improving to 7.1, CRP has improved to 19.8. Lung sounds continue to note inspiratory and expiratory wheezing. Will continue with antibiotics. nebs. Encourage ambulation today. Transfer to acute.
[2019-05-01] MEDS ORDERED: traMADol 50 MG Tab PO PRN (15:34)
[2019-05-01] MEDS ORDERED: Pantoprazole 40 MG Tab.CR PO SCH (20:00)
[2019-05-01] MEDS ORDERED: metFORMIN 500 MG Tab PO SCH (20:00)
[2019-05-01] MEDS: Pregabalin 100 MG Cap PO SCH (20:05)
[2019-05-01] MEDS: Codeine/Promethazine 10-6.25 MG/5 ML Syrup 5 ML UD Cup PO PRN (21:51)
[2019-05-01] MEDS: Enoxaparin 40 MG/0.4 ML Syringe SUBCUT SCH (21:54)
[2019-05-02] MEDS: Levofloxacin/Dextrose 5%-Water 750 MG in Premix Bag 1 BAG IV SCH (01:03)
[2019-05-02] MEDS ORDERED: Simvastatin 40 MG Tab PO SCH (08:00)
[2019-05-02] MEDS ORDERED: Losartan 25 MG Tab PO SCH (08:00)
[2019-05-02] MEDS: Oseltamivir 75 MG Cap PO SCH (08:18)
[2019-05-02] MEDS: Loratadine 10 MG Tab PO SCH (08:18)
[2019-05-02] MEDS: Insulin Lispro 100 Units/ML 3 ML Vial SUBCUT SCH (08:19)
[2019-05-02] MEDS: Nicotine 21 MG/24 Hr Patch TRDERM SCH (08:19)
[2019-05-02] MEDS: Albuterol/Ipratropium 3.0-0.5 MG/3 ML Neb Soln NEB SCH (08:19)
[2019-05-02] MEDS: Pregabalin 100 MG Cap PO SCH (08:28)
[2019-05-02] MEDS: PIOGLITAZONE 30 MG PO SCH (08:29)
[2019-05-02] MEDS: Insulin Glargine,Human Rec. Analog 100 Units/ML 3 ML Pen SUBCUT SCH (08:30)
[2019-05-02] MEDS: VICTOZA SUBCUT SCH (08:31)
--- NOTE | 2019-05-02 15:35 | PCM.DCSUM1 ---
Discharge Summary - Hospital Course Free Text/Narrative:: Patient presents to ER with complaints of body aches, shortness of breath, sinus congestion and cough for 3 days. Had been febrile. Started having nausea /vomiting and unable to tolerate meds. Had been using her inhaler but did not help her shortness of breath and cough. WBC elevated at 13.2, lactic acid elevated, CRP 53. Chest xray shows left lower lobe infiltrate. Influenza B positive. Admitted and started on IV fluids, Tamiflu, nebs and antibiotics. Diagnosis: Stroke: No Modified [place] Scale: No Symptoms at All Modified [place] Scale Score: 0 - Discharge Data Discharge Date: 05/02/19 Discharge Disposition: Home, Self-Care 01 Condition: Fair - Referral to Home Health Primary Care Physician: Arun Walters PA-C - Discharge Diagnosis/Problem(s) (1) Influenza and pneumonia Status: Acute Priority: High - Patient Summary/Data Complications: none Hospital Course: Patient is showing improvement. Does still get short of breath with exertion at times but improved since admission. Has expiratory wheezing but better air exchange. Oxygen sats maintaining over 90% on room air. Appetite has returned. Labs have improved. WBC 7.1, CRP down to 19.8. Electrolytes normal. Will discharge home with Levaquin, finish out course of Tamiflu. Nebs QID. Encouraged smoking cessation. Follow up with Gino in one week. - Patient Instructions Diet: Usual Diet as Tolerated Activity: As Tolerated - Discharge Plan *PRESCRIPTION DRUG MONITORING PROGRAM REVIEWED*: Not Applicable *COPY OF PRESCRIPTION DRUG MONITORING REPORT IN PATIENT RANDI: Not Applicable Prescriptions/Med Rec: Albuterol/Ipratropium [DuoNeb 3.0-0.5 MG/3 ML] 3 ml NEB QID #1 box Levofloxacin [Levaquin] 500 mg PO DAILY #7 tablet Oseltamivir [Tamiflu] 75 mg PO BID #4 cap Home Medications: Home Meds Albuterol [Ventolin HFA] 1 puff INH DAILY PRN 11/22/18 [History] Cetirizine [ZyrTEC] 10 mg PO DAILY 11/22/18 [History] Insulin Glarg,Human.Rec.Analog [Lantus] 52 units SQ QAM 11/22/18 [History] Liraglutide [Victoza] 1.8 mg SQ DAILY 11/22/18 [History] Losartan [Cozaar] 50 mg PO DAILY 11/22/18 [History] Meloxicam 15 mg PO DAILY 11/22/18 [History] Omeprazole 40 mg PO BEDTIME 11/22/18 [History] Pioglitazone [Actos] 30 mg PO DAILY 11/22/18 [History] Pregabalin [Lyrica] 100 mg PO BID 11/22/18 [History] Simvastatin [Zocor] 40 mg PO DAILY 11/22/18 [History] metFORMIN HCl [Metformin HCl] 1,000 mg PO BEDTIME 11/22/18 [History] traMADol [Ultram] 50 mg PO BID PRN 11/22/18 [History] Pyridostigmine [Mestinon] 60 mg PO DAILY 04/29/19 [History] Albuterol/Ipratropium [DuoNeb 3.0-0.5 MG/3 ML] 3 ml NEB QID #1 box 05/02/19 [Rx] Levofloxacin [Levaquin] 500 mg PO DAILY #7 tablet 05/02/19 [Rx] Oseltamivir [Tamiflu] 75 mg PO BID #4 cap 05/02/19 [Rx] Patient Handouts: Influenza, Adult, Community-Acquired Pneumonia, Adult Forms: ED Department Discharge Referrals: Arun Walters PA-C [Primary Care Provider] - (Follow up with Gino Walters in one week) - Discharge Summary/Plan Comment DC Time >30 min.: No - General Info Date of Service: 05/02/19 Admission Dx/Problem (Free Text: Influenza and left upper lobe pneumonia Functional Status: Reports: Pain Controlled, Tolerating Diet, Ambulating - Review of Systems General: Reports: Fatigue. Denies: Fever, Weakness, Malaise HEENT: Reports: Rhinitis. Denies: Ear Pain, Sinus Congestion Pulmonary: Reports: Shortness of Breath, Cough, Wheezing Cardiovascular: Denies: Chest Pain, Edema, Lightheadedness Gastrointestinal: Denies: Abdominal Pain, Nausea, Vomiting Genitourinary: Reports: No Symptoms Musculoskeletal: Reports: No Symptoms Skin: Reports: No Symptoms Neurological: Reports: Weakness - Patient Data Vitals - Most Recent: Last Vital Signs Temp 97.4 F 05/02/19 08:00 Pulse 88 05/02/19 08:00 Resp 20 05/02/19 08:00 BP 139/43 L 05/02/19 08:18 Pulse Ox 97 05/02/19 08:00 Weight - Most Recent: 214 lb 12.8 oz Lab Results - Last 24 hrs: Laboratory Results - last 24 hr 05/01/19 05/01/19 05/02/19 Range/Units 17:10 20:09 08:09 POC Glucose 175 H 165 H 95 (75-105) mg/dl MARYLOU Results - Last 24 hrs: Microbiology 04/29/19 19:58 Aerobic Blood Culture - Preliminary Blood - Venous - Lab Draw NO GROWTH AFTER 2 DAYS Anaerobic Blood Culture - Preliminary NO GROWTH AFTER 2 DAYS 04/29/19 19:55 Aerobic Blood Culture - Preliminary Blood - Venous NO GROWTH AFTER 2 DAYS Anaerobic Blood Culture - Preliminary NO GROWTH AFTER 2 DAYS Med Orders - Current: Current Medications Discontinued Medications Acetaminophen (Tylenol Extra Strength) 1,000 mg PO ONETIME ONE Stop: 04/29/19 18:17 Last Admin: 04/29/19 19:00 Dose: 1,000 mg Acetaminophen (Tylenol) 650 mg PO Q4H PRN PRN Reason: Pain (Mild 1-3)/fever Albuterol (Ventolin Hfa) 0 gm INH DAILY PRN PRN Reason: Shortness of Breath Albuterol/Ipratropium (Duoneb 3.0-0.5 Mg/3 Ml) 3 ml NEB QID [facility] Last Admin: 05/02/19 08:19 Dose: 3 ml Ceftriaxone Sodium (Rocephin) 1 gm IVPUSH ONETIME ONE Stop: 04/29/19 19:14 Last Admin: 04/29/19 20:40 Dose: 1 gm Enoxaparin Sodium (Lovenox) 40 mg SUBCUT Q24H [facility] Last Admin: 05/01/19 21:54 Dose: 40 mg Sodium Chloride (Normal Saline) 1,000 mls @ 999 mls/hr IV ASDIRECTED [facility] Last Admin: 04/29/19 23:00 Dose: 125 mls/hr Levofloxacin/Dextrose 750 mg/ (Premix) 150 mls @ 100 mls/hr IV Q48H [facility] Last Admin: 05/02/19 01:03 Dose: 100 mls/hr Sodium Chloride (Normal Saline) 1,000 mls @ 125 mls/hr IV ASDIRECTED [facility] Last Admin: 05/01/19 00:54 Dose: 125 mls/hr Ibuprofen (Motrin) 600 mg PO Q6H PRN PRN Reason: Pain (mild 1-3) Last Admin: 04/30/19 12:45 Dose: 600 mg Insulin Glargine (Lantus Solostar) 52 units SUBCUT DAILY [facility] Last Admin: 05/02/19 08:30 Dose: 52 units Insulin Human Lispro (Humalog) 0 unit SUBCUT WITHMEALSANDBED [facility]; Protocol Last Admin: 05/02/19 08:19 Dose: Not Given Loratadine (Claritin) 10 mg PO DAILY [facility] Last Admin: 05/02/19 08:18 Dose: 10 mg Losartan Potassium (Cozaar) 50 mg PO DAILY [facility] Last Admin: 04/30/19 11:46 Dose: Not Given Losartan Potassium (Cozaar) 50 mg PO DAILY [facility] Last Admin: 05/02/19 08:18 Dose: 50 mg Metformin HCl (Glucophage) 1,000 mg PO BEDTIME [facility] Last Admin: 05/01/19 20:05 Dose: 1,000 mg Nicotine (Habitrol) 21 mg TRDERM DAILY [facility] Last Admin: 05/02/19 08:19 Dose: Not Given Non-Formulary Medication (Pyridostigmine) 60 mg PO DAILY [facility] Ondansetron HCl (Zofran) 4 mg IVPUSH Q6H PRN PRN Reason: Nausea Last Admin: 04/30/19 04:05 Dose: 4 mg Oseltamivir Phosphate (Tamiflu) 75 mg PO BID [facility] Last Admin: 05/02/19 08:18 Dose: 75 mg Pantoprazole Sodium (Protonix) 40 mg PO BEDTIME [facility] Last Admin: 04/29/19 22:01 Dose: Not Given Pantoprazole Sodium (Protonix) 40 mg PO BEDTIME [facility] Last Admin: 05/01/19 20:05 Dose: 40 mg Victoza *Pt Own Med* 0 each SUBCUT DAILY [facility] Last Admin: 05/02/19 08:31 Dose: 1 each Pioglitazone 30 Mg (Tab *Pt Own Med*) 0 each PO DAILY [facility] Last Admin: 05/02/19 08:29 Dose: 1 each Metformin 1000 Mg (Tab*Pt Own Med*) 0 each PO BEDTIME [facility] Last Admin: 04/30/19 19:53 Dose: 1 each Simvastatin 40 Mg (Tab*Pt Own Med.) 0 each PO DAILY [facility] Last Admin: 05/01/19 08:38 Dose: 1 each Losartant 50 Mg Tabs (*Pt Own Med*) 0 each PO DAILY [facility] Last Admin: 05/01/19 08:39 Dose: 1 each Omeprazole 40 Mg Cap (*Pt Own Med*) 0 each PO BEDTIME [facility] Last Admin: 04/30/19 19:53 Dose: 1 each Tramadol 50 Mg Tab* (Pt Own Med*) 0 each PO BID PRN PRN Reason: PAIN Last Admin: 04/30/19 19:53 Dose: 1 each Pregabalin 100 Mg (Cap*Pt Own Med*) 0 each PO BID [facility] Last Admin: 05/01/19 08:37 Dose: 1 each Pregabalin (Lyrica) 100 mg PO BID [facility] Last Admin: 04/30/19 11:46 Dose: Not Given Pregabalin (Lyrica) 100 mg PO BID [facility] Last Admin: 05/02/19 08:28 Dose: 100 mg Promethazine HCl/Codeine (Phenergan With Codeine) 10 ml PO Q6H PRN PRN Reason: Cough Last Admin: 05/01/19 21:51 Dose: 10 ml Simvastatin (Zocor) 40 mg PO DAILY [facility] Last Admin: 04/30/19 11:46 Dose: Not Given Simvastatin (Zocor) 40 mg PO DAILY [facility] Last Admin: 05/02/19 08:28 Dose: 40 mg Tramadol HCl (Ultram) 50 mg PO BID PRN PRN Reason: Pain Tramadol HCl (Ultram) 50 mg PO BID PRN PRN Reason: PAIN - Exam General: Reports: Alert, Oriented HEENT: Reports: Mucous Membr. Moist/[place] Neck: Reports: Supple Lungs: Reports: Decreased Breath Sounds, Wheezing Cardiovascular: Reports: Regular Rate, Regular Rhythm GI/Abdominal Exam: Normal Bowel Sounds, Soft, Non-Tender Extremities: Normal Inspection, No Pedal Edema Skin: Reports: Warm, Dry Neurological: Reports: No New Focal Deficit
== END 2019-05-02 11:00 | disposition home or self-care (01) | DRG 194 ==
LOC: CC.ED 18:05 → CC.MS 19:00 → UNDOADMOB 19:00 → CC.ED 19:14 → CC.MS 05-01 08:32 → OBSVTOIN 05-01 08:32 → INTOOBSV 05-01 08:32
PROVIDERS: ADMIT Physician Assistant Medical; ATTEND Family Medicine
DX: J10.00 Influenza due to other identified influenza virus with unspecified type of pneumonia (principal); J44.0 Chronic obstructive pulmonary disease with (acute) lower respiratory infection; F17.210 Nicotine dependence, cigarettes, uncomplicated; E78.00 Pure hypercholesterolemia, unspecified; I10 Essential (primary) hypertension; G70.00 Myasthenia gravis without (acute) exacerbation; E11.9 Type 2 diabetes mellitus without complications; F17.200 Nicotine dependence, unspecified, uncomplicated; Z88.0 Allergy status to penicillin; Z88.1 Allergy status to other antibiotic agents; Z90.49 Acquired absence of other specified parts of digestive tract; Z79.4 Long term (current) use of insulin; Z79.899 Other long term (current) drug therapy; Z71.6 Tobacco abuse counseling
CPT/HCPCS: 36415; 71046; 80048; 82962; 83605; 85025; 86140; 87040; 87804; 94640; 96361; 96365; 96366; 96372; 96374; 96375; 96376; 99220; 99225; 99285-25; A9270-GY; G0378; J0696; J1650; J1815; J1815-GY; J1956; J2405; J7030; J7620-GY